=== PATIENT | male | born 1995 | race Caucasian/White ===

== ENCOUNTER 2024-02-19 12:42 | Emergency (ER) | payer BC ==
[~2024-02-19] VITALS: Ht 175.3 cm; Wt 60.0 kg
[2024-02-19 12:53] VITALS: BP 120/84; PULSE 89; RESP 18; TEMP 98.1; O2SAT 99
[2024-02-19 13:24] LABS: CLARITY URINE TURBID (CLEAR); COLOR URINE YELLOW (YELLOW); GLUCOSE URINE NEGATIVE (NEGATIVE); KETONES URINE NEGATIVE (NEGATIVE); LEUKOCYTE ESTERASE URINE NEGATIVE (NEGATIVE); NITRITE URINE NEGATIVE (NEGATIVE); OCCULT BLOOD URINE NEGATIVE (NEGATIVE); PH URINE 8.5 (4.5-8.0); PROTEIN URINE NEGATIVE (NEGATIVE); SPECIFIC GRAVITY URINE 1.017 (1.005-1.030); UROBILINOGEN URINE 0.2 E.U./dL (0.2-1.0)
[2024-02-19 13:53] LABS: AMORPHOUS SEDIMENT URINE 2+ /lpf
[2024-02-19 13:54] LABS: BACTERIA URINE 1+; RBC URINE 0-2 /hpf (0-2); SQUAMOUS EPITHELIAL CELL URINE NONE SEEN /lpf (RARE/1+)
[2024-02-19 13:55] LABS: WBC URINE 0-2 /hpf (0-2)
== END 2024-02-19 14:24 | disposition home or self-care (01) ==
LOC: ER 13:40
DX: N50.9 Disorder of male genital organs, unspecified (principal)
CPT/HCPCS: 36415; 81003; 86592; 99283

== ENCOUNTER 2024-04-18 19:58 | Emergency (ER) | payer BC ==
[~2024-04-18] VITALS: Ht 170.2 cm; Wt 57.6 kg
[2024-04-18 20:03] VITALS: O2SAT 97
[2024-04-18 20:28] VITALS: BP 112/72; PULSE 78; RESP 16; TEMP 98.6; O2SAT 99
== END 2024-04-18 21:44 | disposition home or self-care (01) ==
LOC: ER 19:58
DX: F84.0 Autistic disorder (principal); Z00.00 Encounter for general adult medical examination without abnormal findings
CPT/HCPCS: 99281